=== PATIENT | female | born 1945 | race Caucasian/White ===

== ENCOUNTER 2018-05-04 11:49 | Emergency (ER) | payer MEDICARE, OTHER ==
--- NOTE | 2018-05-04 12:04 | ER Document Report ---
ED Medical Screen (RME) - General Chief Complaint: Rib Pain Stated Complaint: POSSIBLE RIB PAIN Time Seen by Provider: 05/04/18 12:02 Mode of Arrival: Wheelchair Information source: Patient, Relative Notes: 72-year-old female history of COPD presents with complaints of left rib pain. Patient notes that she had a Heimlich maneuver performed on her a few days prior and felt a rib crack has been having difficulty breathing since Patient noted to be hypoxic notes her baseline O2 is much higher I have greeted and performed a rapid initial assessment of this patient. A comprehensive ED assessment and evaluation of the patient, analysis of test results and completion of the medical decision making process will be conducted by additional ED providers. PHYSICAL EXAMINATION: GENERAL: in acute distress HEAD: Atraumatic, normocephalic. EYES: Pupils equal round extraocular movements intact, conjunctiva are normal. ENT: Nares patent NECK: Normal range of motion LUNGS: decerased breath sounds on the left Musculoskeletal: Normal range of motion NEUROLOGICAL: Normal speech, normal gait. PSYCH: Normal mood, normal affect. SKIN: Warm, Dry, normal turgor, no rashes or lesions noted. - Related Data Allergies/Adverse Reactions: codeine Allergy (Verified 05/04/18 11:51) morphine Allergy (Verified 05/04/18 11:51) Physical Exam - Vital signs Vitals: Temp Pulse Resp BP Pulse Ox 98.3 F 105 H 21 H 137/75 H 88 L 05/04/18 11:58 05/04/18 11:58 05/04/18 11:58 05/04/18 11:58 05/04/18 11:58 Course - Vital Signs Vital signs: Temp Pulse Resp BP Pulse Ox 98.3 F 105 H 21 H 137/75 H 88 L 05/04/18 11:58 05/04/18 11:58 05/04/18 11:58 05/04/18 11:58 05/04/18 11:58
[2018-05-04] MEDS ORDERED: KETOROLAC TROMETHAMINE INJ/PF 30 MG/1 ML SDV IV ONE (12:26)
--- NOTE | 2018-05-04 12:32 | ER Document Report ---
ED General - General Chief Complaint: Rib Pain Stated Complaint: POSSIBLE RIB PAIN Time Seen by Provider: 05/04/18 12:02 Mode of Arrival: Wheelchair Notes: 72-year-old female presents emergency department with complaints of left rib pain for the last day. Patient states that she was choking on a piece of steak and her performed the Heimlich maneuver on her. Patient states that she heard 1 of her left ribs pop at that time. Patient states that she was fine afterwards but began having severe left rib pain yesterday. Patient does have a history of COPD and wears oxygen as needed. Patient states that she has not been wearing her oxygen recently. Patient denies any chest pain. She states that her pain is worse with movement, coughing, sneezing. No alleviating factors. TRAVEL OUTSIDE OF THE [place] IN LAST 30 DAYS: No - HPI Patient complains to provider of: Left rib pain Onset: Yesterday Onset/Duration: Gradual Severity: Severe Pain Level: 5 Associated symptoms: None Exacerbated by: Denies Relieved by: Denies Similar symptoms previously: No Recently seen / treated by doctor: No - Related Data Allergies/Adverse Reactions: codeine Allergy (Verified 05/04/18 11:51) morphine Allergy (Verified 05/04/18 11:51) Past Medical History - General Information source: Patient, Relative - Social History Smoking Status: Former Smoker Chew tobacco use (# tins/day): No Frequency of alcohol use: None Drug Abuse: None Family History: Reviewed & Not Pertinent Patient has suicidal ideation: No Patient has homicidal ideation: No Renal/ Medical History: Denies: Hx Peritoneal Dialysis Past Surgical History: Reports: Hx Abdominal Surgery - fistula repair, Hx Hysterectomy Review of Systems - Review of Systems Constitutional: No symptoms reported EENT: No symptoms reported Cardiovascular: No symptoms reported, Chest pain Respiratory: Hurts to breathe Gastrointestinal: No symptoms reported Genitourinary: No symptoms reported Musculoskeletal: Other - L rib pain Skin: No symptoms reported Neurological/Psychological: No symptoms reported -: Yes All other systems reviewed and negative Physical Exam - Vital signs Vitals: Temp Pulse Resp BP Pulse Ox 98.3 F 105 H 21 H 137/75 H 88 L 05/04/18 11:58 05/04/18 11:58 05/04/18 11:58 05/04/18 11:58 05/04/18 11:58 Interpretation: Normal, Hypoxic - Notes Notes: PHYSICAL EXAMINATION: GENERAL: Patient in acute distress, well-nourished. HEAD: Atraumatic, normocephalic. EYES: Pupils equal round and reactive to light, extraocular movements intact, conjunctiva are normal. ENT: Nares patent, oropharynx clear without exudates. Moist mucous membranes. NECK: Normal range of motion, supple without lymphadenopathy LUNGS: Breath sounds clear to auscultation bilaterally and equal. No wheezes rales or rhonchi. L anterior and lateral ribs tenderness to palpation. Contusion to the left lateral chest wall. HEART: Regular rate and rhythm without murmurs ABDOMEN: Soft, nontender, nondistended abdomen. No guarding, no rebound. No masses appreciated. Female : deferred Musculoskeletal: Normal range of motion, no pitting or edema. No cyanosis. NEUROLOGICAL: Cranial nerves grossly intact. Normal speech, normal gait. Normal sensory, motor exams PSYCH: Normal mood, normal affect. SKIN: Warm, Dry, normal turgor, no rashes or lesions noted. Course - Re-evaluation Re-evalutation: 05/04/18 15:56 Imaging obtained. No acute process identified. Discussed results with the patient. Patient instructed to follow-up with her primary care physician this week, to take medications prescribed as directed, and to return to emergency department for worsening symptoms. Patient is agreeable to plan of care. - Vital Signs Vital signs: Temp Pulse Resp BP Pulse Ox 98.3 F 105 H 13 98/41 L 99 05/04/18 11:58 05/04/18 11:58 05/04/18 15:01 05/04/18 15:01 05/04/18 15:01 - Laboratory Result Diagrams: 05/04/18 12:12 05/04/18 12:12 Laboratory results interpreted by me: 05/04/18 05/04/18 12:12 12:12 WBC 14.3 H RDW 17.5 H Absolute Neutrophils 10.8 H Potassium 3.5 L Est GFR ( Amer) 55 L Est GFR (Non-Af Amer) 45 L Glucose 112 H Discharge - Discharge Clinical Impression: Contusion of rib on left side Qualifiers: Encounter type: initial encounter Qualified Code(s): S20.212A - Contusion of left front wall of thorax, initial encounter Condition: Good Disposition: HOME, SELF-CARE Instructions: Rib Contusion ([facility])
[2018-05-04 12:34] LABS: BASOPHILS % (AUTO) 0.7 % (0-2); EOSINOPHILS % (AUTO) 0.8 % (0-6); HEMATOCRIT 41.8 % (36.0-47.0); LYMPHOCYTES % (AUTO) 14.1 % (13-45); MEAN CORPUSCULAR HEMOGLOBIN 30.2 pg (27.0-33.4); MEAN CORPUSCULAR HGB CONC 33.5 g/dL (32.0-36.0); MEAN CORPUSCULAR VOLUME 90 fl (80-97); MONOCYTES % (AUTO) 8.9 % (3-13); PLATELET COUNT 230 10^3/uL (150-450); RED BLOOD COUNT 4.64 10^6/uL (3.72-5.28); RED CELL DISTRIBUTION WIDTH 17.5 % (11.5-14.0); SEGMENTED NEUTROPHILS % (AUTO) 75.5 % (42-78); WHITE BLOOD COUNT 14.3 10^3/uL (4.0-10.5)
[2018-05-04 12:35] LABS: ABSOLUTE BASOPHILS # (AUTO) 0.1 10^3/uL (0.0-0.2); ABSOLUTE EOSINOPHILS # (AUTO) 0.1 10^3/uL (0.0-0.6); ABSOLUTE MONOCYTES (AUTO) 1.3 10^3/uL (0.1-1.4); ABSOLUTE NEUT (AUTO) 10.8 10^3/uL (1.7-8.2); TOTAL CELLS COUNTED % (AUTO) 100 %
[2018-05-04 12:50] LABS: ALANINE AMINOTRANSFERASE 22 U/L (9-52); ALBUMIN 3.6 g/dL (3.5-5.0); ALKALINE PHOSPHATASE 87 U/L (38-126); ANION GAP 11 (5-19); ASPARTATE AMINO TRANSFERASE 21 U/L (14-36); BILIRUBIN,DIRECT 0.4 mg/dL (0.0-0.4); BILIRUBIN,TOTAL 1.2 mg/dL (0.2-1.3); BLOOD UREA NITROGEN 11 mg/dL (7-20); CALCIUM 8.9 mg/dL (8.4-10.2); CARBON DIOXIDE 29 mmol/L (22-30); CHLORIDE 104 mmol/L (98-107); GLUCOSE 112 mg/dL (75-110); POTASSIUM 3.5 mmol/L (3.6-5.0); TOTAL PROTEIN 6.5 g/dL (6.3-8.2)
--- NOTE | 2018-05-04 13:04 | RADIOLOGY REPORT (SQ) ---
EXAM DESCRIPTION: RIBS LEFT W/PA CHEST COMPLETED DATE/TIME: 05/04/2018 12:53 pm REASON FOR STUDY: rib injury, hypoxemia COMPARISON: None. TECHNIQUE: Frontal view of the chest and additional views of the left ribs acquired. NUMBER OF VIEWS: Three view. LIMITATIONS: None. FINDINGS: FRONTAL CXR: No pneumothorax. No pleural effusion. Basilar atelectasis/scarring. RIBS: No displaced rib fractures. No lytic or blastic bony lesions. OTHER: No other significant finding. IMPRESSION: NO PNEUMOTHORAX. NO DISPLACED RIB FRACTURES. COMMENT: SITE OF TRAUMA/COMPLAINT MARKED/STAMP COMPLETED: NO. TECHNICAL DOCUMENTATION: JOB ID: [id number] [employer]- All Rights Reserved Reading location - IP/workstation name: [email or web address]
[2018-05-04] MEDS ORDERED: NORMAL SALINE 500 ML IV ONE (13:08)
--- NOTE | 2018-05-04 15:05 | RADIOLOGY REPORT (SQ) ---
EXAM DESCRIPTION: CT ABD/PELVIS WITH IV ONLY; CTA CHEST COMPLETED DATE/TIME: 05/04/2018 2:44 pm REASON FOR STUDY: LUQ abdominal pain; L chest pain, LUQ abdominal pain COMPARISON: 2007. TECHNIQUE: CT scan of the chest, abdomen and pelvis performed using helical scanning technique with dynamic intravenous contrast injection. Images reviewed with lung, soft tissue and bone windows. Re constructed coronal and sagittal MPR images reviewed. Additional 3 dimensional post-processing performed to develop Maximal Intensity Projection images ([place] P). All images stored on PACS. All CT scanners at this facility use dose modulation, iterative reconstruction, and/or weight based d osing when appropriate to reduce radiation dose to as low as reasonably achievable (ALARA). [facility]: Dose Right [facility]: CareDose [facility]: Dose Right [facility]: Teradose 4D [facility]: Flinto CONTRAST TYPE AND DOSE: contrast/concentration: Isovue 370.00 mg/ml; Total Contrast Delivered: 60.0 ml; Total Saline Delivered: 67.0 ml RENAL FUNCTION: GFR > 60. RADIATION DOSE: CT Rad equipment meets quality standard of care and radiation dose reduction techniq ues were employed. CTDIvol: 11.6 - 16.5 mGy. DLP: 1653 mGy-cm. . LIMITATIONS: None. FINDINGS: Chest Scarring and bullous emphysema. No acute infiltrate. No pneumothorax or pleural effusion. No media stinal mass or adenopathy no aortic aneurysm or pulmonary embolus. No aortic dissection. No bone pa thology appreciated. Abdomen/ pelvis No solid organ pathology. No bowel obstruction or inflammatory change. Moderate to large amount of proximal colonic stool. No ascites or abnormal gas collections. Atherosclerosis with 2 cm ectasia o f the infrarenal aorta. Major arterial structures look patent. No calcified gallstones. No bone pa thology. 3D MIPS: Confirm above findings. OTHER: No other significant finding. IMPRESSION: 1. COPD. No acute chest findings. No pulmonary embolus or aortic disease evident. 2. No acute or suspicious abdominopelvic abnormality. Findings include stool retention and atherosclero sis with aortic ectasia (but no alice aneurysm). COMMENT: Quality ID # [id number]: Final reports with documentation of one or more dose reduction techniques (e.g., Automated exposure control, adjustment of the mA and/or kV according to patient size, use of iterative reconstruction technique) TECHNICAL DOCUMENTATION: JOB ID: [id number] [employer]- All Rights Reserved Reading location - IP/workstation name: [email or web address]
--- NOTE | 2018-05-04 15:05 | RADIOLOGY REPORT (SQ) ---
EXAM DESCRIPTION: CT ABD/PELVIS WITH IV ONLY; CTA CHEST COMPLETED DATE/TIME: 05/04/2018 2:44 pm REASON FOR STUDY: LUQ abdominal pain; L chest pain, LUQ abdominal pain COMPARISON: 2007. TECHNIQUE: CT scan of the chest, abdomen and pelvis performed using helical scanning technique with dynamic intravenous contrast injection. Images reviewed with lung, soft tissue and bone windows. Re constructed coronal and sagittal MPR images reviewed. Additional 3 dimensional post-processing performed to develop Maximal Intensity Projection images ([place] P). All images stored on PACS. All CT scanners at this facility use dose modulation, iterative reconstruction, and/or weight based d osing when appropriate to reduce radiation dose to as low as reasonably achievable (ALARA). [facility]: Dose Right [facility]: CareDose [facility]: Dose Right [facility]: Teradose 4D [facility]: Zadego CONTRAST TYPE AND DOSE: contrast/concentration: Isovue 370.00 mg/ml; Total Contrast Delivered: 60.0 ml; Total Saline Delivered: 67.0 ml RENAL FUNCTION: GFR > 60. RADIATION DOSE: CT Rad equipment meets quality standard of care and radiation dose reduction techniq ues were employed. CTDIvol: 11.6 - 16.5 mGy. DLP: 1653 mGy-cm. . LIMITATIONS: None. FINDINGS: Chest Scarring and bullous emphysema. No acute infiltrate. No pneumothorax or pleural effusion. No media stinal mass or adenopathy no aortic aneurysm or pulmonary embolus. No aortic dissection. No bone pa thology appreciated. Abdomen/ pelvis No solid organ pathology. No bowel obstruction or inflammatory change. Moderate to large amount of proximal colonic stool. No ascites or abnormal gas collections. Atherosclerosis with 2 cm ectasia o f the infrarenal aorta. Major arterial structures look patent. No calcified gallstones. No bone pa thology. 3D MIPS: Confirm above findings. OTHER: No other significant finding. IMPRESSION: 1. COPD. No acute chest findings. No pulmonary embolus or aortic disease evident. 2. No acute or suspicious abdominopelvic abnormality. Findings include stool retention and atherosclero sis with aortic ectasia (but no alice aneurysm). COMMENT: Quality ID # [id number]: Final reports with documentation of one or more dose reduction techniques (e.g., Automated exposure control, adjustment of the mA and/or kV according to patient size, use of iterative reconstruction technique) TECHNICAL DOCUMENTATION: JOB ID: [id number] [employer]- All Rights Reserved Reading location - IP/workstation name: [email or web address]
[2018-05-04 16:05] VITALS: BP 105/49
== END 2018-05-04 16:15 | disposition home or self-care (01) ==
LOC: ER 11:49
DX: S20.212A Contusion of left front wall of thorax, initial encounter (principal); R07.81 Pleurodynia; W51.XXXA Accidental striking against or bumped into by another person, initial encounter; Y93.89 Activity, other specified; Z87.891 Personal history of nicotine dependence; J44.9 Chronic obstructive pulmonary disease, unspecified
CPT/HCPCS: 99284; 96374; 36415; 85025; 80053; 71101; 71275; 74177; J1885; J7040

== ENCOUNTER → 2019-12-08 | Outpatient (CLI) | payer MEDICARE, OTHER ==
--- NOTE | 2019-12-09 09:34 | RADIOLOGY REPORT (SQ) ---
EXAM DESCRIPTION: PET CT SKULL/THIGH COMPLETED DATE/TIME: 12/08/2019 8:06 pm REASON FOR STUDY: OTHER NONSPECIFIC ABNORMAL FINDING OF LUNG FIELD R91.8 OTHER NONSPECIFIC ABNORMAL FINDING OF LUNG FIELD COMPARISON: No prior pets, CT 05/04/2018, CT report 11/12/2019 RADIONUCLIDE AND DOSE: 10.769 mCi F18 FDG The route of agent administration: Intravenous FASTING BLOOD SUGAR: 91 mg/dl CONTRAST TYPE AND DOSE: No CT contrast given. TECHNIQUE: Blood glucose level was verified. Above dose of FDG was injected intravenously. 2-D seg mented attenuation correction images were obtained from the base of the skull to the midthighs. Nonc ontrast CT images were obtained for attenuation correction and fusion with emission images. CT image s were performed without oral or intravenous contrast and are not sensitive for parenchymal lesions. A series of overlapping emission PET images were obtained. Images reviewed and manipulated at [facility] work station by the radiologist. Images stored on PACS. LIMITATIONS: None. FINDINGS: HEAD AND NECK: No areas of abnormal metabolic activity in the soft tissues of the head and neck. CHEST: Emphysematous change with irregular linear areas of consolidation within the bilateral upper l obes. There is no significant increased uptake within the right upper lobe (max SUV 1.3). Linear co nsolidation within the left upper lobe also demonstrates no significant pathologic uptake (max SUV 1. 5). There is diffuse uptake about the right deltoid and infraspinatus muscle without CT correlate (m ax SUV 5.3) ABDOMEN AND PELVIS: The background hepatic activity max SUV 3.3. Background blood pool activity max SUV 1.7. No areas of abnormal metabolic activity in the abdomen or pelvis. Expected physiologic act ivity is present in the genitourinary system and bowel. PROXIMAL LOWER EXTREMITIES: No areas of abnormal metabolic activity in the soft tissues of the lower extremities. BONES: No abnormal metabolic activity in the visualized skeleton. ADDITIONAL CT FINDINGS: Centrilobular and panacinar emphysema. Irregular areas of linear consolidati on within the bilateral upper lobes without significant increased uptake as above. Scattered coronar y atherosclerosis. Normal heart size. Dependent hypoventilatory change. No evidence of acute intra -abdominal/ pelvic process. Aortoiliac atherosclerosis. Mild focal dilation of the infrarenal abdom inal aorta measuring up to 2.3 cm. Partially visualized right hip arthroplasty. OTHER: No other significant findings. IMPRESSION: 1. Emphysematous change with irregular linear areas of consolidation within the bilater al upper lobes without significant increased uptake (max SUV 1.3 on the right and 1.5 on the left). Findings favor more benign process such as scarring. 2. Diffuse increased uptake about the right deltoid muscle and infraspinatus (max SUV 5.3) without C T correlate. Findings likely represent inflammatory change from recent trauma/ injury. Recommend co rrelation with patient history and physical exam. 3. No other areas of pathologic uptake throughout remainder the scan. TECHNICAL DOCUMENTATION: JOB ID: [id number] [employer]- All Rights Reserved Reading location - IP/workstation name: [email or web address]
== END ==
LOC: RAD 09:48
PROVIDERS: ATTEND Internal Medicine Critical Care Medicine
DX: R91.8 Other nonspecific abnormal finding of lung field (principal)
CPT/HCPCS: 78815; A9552